=== PATIENT | male | born 1970 | race Caucasian/White ===

== ENCOUNTER 2024-07-30 12:22 | Emergency (ER) | payer OTHER, BC ==
[~2024-07-30] VITALS: Ht 182.9 cm; Wt 99.3 kg
[2024-07-30] MEDS ORDERED: TESTOSTERO200 MG/1 M IM (12:44)
[2024-07-30] MEDS ORDERED: AMLODIPINE BESYL5 MG PO (12:44)
[2024-07-30] MEDS ORDERED: TRULICITY3 MG/0.5 M SQ (12:44)
[2024-07-30] MEDS ORDERED: LORATADINE10 MG PO (12:44)
[2024-07-30] MEDS ORDERED: ROSUVASTATIN CA10 MG PO (12:44)
[2024-07-30 14:38] VITALS: BP 140/90
== END 2024-07-30 14:38 | disposition home or self-care (01) ==
LOC: ED 12:22
DX: S01.81XA Laceration without foreign body of other part of head, initial encounter (principal); I10 Essential (primary) hypertension; E11.9 Type 2 diabetes mellitus without complications; E78.00 Pure hypercholesterolemia, unspecified; W01.0XXA Fall on same level from slipping, tripping and stumbling without subsequent striking against object, initial encounter; Z79.899 Other long term (current) drug therapy
CPT/HCPCS: 70450; 99283-25

== ENCOUNTER 2024-09-25 10:40 | Day surgery (SDC) | payer BC, OTHER ==
[~2024-09-25] VITALS: Ht 180.3 cm; Wt 100.0 kg
[~2024-09-25 10:40] MED LIST: AMLODIPINE BESYL5 MG PO; CENTRUM MEN 501 EACH PO; IBLOOD GLUCOSE TEST STRIP 1 EA TEST VI PRN; LACTATED RINGER'S 1,000 ML IV SCH; LEVOTHYROXINE75 MCG PO; LIDOCAINE HCL 1% 5 ML SDV INJ ONE; LORATADINE10 MG PO; ROSUVASTATIN CA10 MG PO; TESTOSTERO200 MG/1 M IM; TRULICITY3 MG/0.5 M SQ
[2024-09-25 10:50] VITALS: BP 134/77
--- NOTE | 2024-09-25 12:15 | NUR ---
09/25/24 1215 Beth Bond 1158-PT ARRIVES TO PACU, VIA STRETCHER, PT RESTING ON LT SIDE, NO RESPONSE TO STIMULI, VSS ON RA, RR EVEN AND UNLABORED. 1210-PT AWAKENS TO TACTILE STIMULI, PT DENIES PAIN OR NAUSEA, VS REMAIN STABLE. PT ENCOURAGED TO PASS GAS. 1215-PT SITTING UP IN BED SIPPING ON WATER.
[2024-09-25 12:32] VITALS: BP 119/95
--- NOTE | 2024-09-29 13:15 | PATH ---
[facility] [address] [place], [place] [address] Signed SPECIMEN(S): A COLON POLYP #1 AT 20 CM SPECIMEN(S): B COLON POLYP #2 AT 20 CM SPECIMEN SOURCE: A. COLON POLYP #1 AT 20 CM B. COLON POLYP #2 AT 20 CM CLINICAL HISTORY: Screening FINAL PATHOLOGIC DIAGNOSIS: A. Colon polyp #1, at 20 cm - Hyperplastic polyp. B. Colon polyp #2, at 20 cm - Tubular adenoma. AMB MICROSCOPIC EXAMINATION: Histologic sections of all submitted blocks are examined by light microscopy. These findings, together with the gross examination, support the pathologic diagnosis. GROSS DESCRIPTION: A. The specimen, labeled and designated "Miladys, colon polyp #1 at 20 cm," is received in formalin and consists of two vaz soft tissue fragments, ranging from 0.2-0.3 cm. Entirely submitted in (A1). B. The specimen, labeled and designated "Miladys, colon polyp #2 at 20 cm," is received in formalin and consists of two vaz soft tissue fragments, ranging from 0.2-0.4 cm. Entirely submitted in (B1). VB (under the direct supervision of a pathologist) The Gross Description was prepared using a voice recognition system. The report was reviewed for accuracy; however, sound-alike word errors, addition and/or deletions may occur. If there is any question about this report, please contact Client Services. ADDITIONAL NOTES: Immunohistochemical and/or in situ hybridization studies if performed in this case included appropriate positive controls that reacted as expected. This test was developed and its performance characteristics determined by [facility]. It has not been cleared or approved by the U.S. Food and Drug Administration. The FDA has determined that PATIENT NAME: JOSE LAWSON PATHOLOGY DATE OF : 68 REPORT #: [id number] PHYSICIAN: [facility] PCP: NANY POSADA REPORT IS CONFIDENTIAL AND NOT TO BE RELEASED WITHOUT AUTHORIZATION [facility] [address] [facility] [place] [address] Signed such clearance or approval is not necessary. This test is used for clinical purposes. It should not be regarded as investigational or for research. [facility] is certified under the Clinical Laboratory Improvement Amendments of 1988 (CLIA) as qualified to perform high complexity clinical laboratory testing. PERFORMING LABORATORY: Technical component was performed by [facility], [address] [place] [id number] (CLIA# [id number]). [facility] [address] [id number] Diagnostician: Roxie Mejia MD Pathologist Electronically Signed 09/29/2024 Copies: ~ PATIENT NAME: JOSE LAWSON PATHOLOGY DATE OF : [birth year] REPORT #: [id number] PHYSICIAN: [facility] PATHOLOG[facility] PCP: NANY POSADA REPORT IS CONFIDENTIAL AND NOT TO BE RELEASED WITHOUT AUTHORIZATION
--- NOTE | 2024-10-01 15:15 | OR ---
[facility] [address] [place], [place] [address] Signed DATE OF OPERATION: 09/25/2024 SURGEON: Charo Moses DO PREOPERATIVE DIAGNOSIS: Colon cancer screening. POSTOPERATIVE DIAGNOSIS: Colon cancer screening, colon polyp at 20 cm x2. PROCEDURE PERFORMED: Colonoscopy with biopsy broad-based polyps at 20 cm x2. ANESTHESIA: IV sedation. ESTIMATED BLOOD LOSS: Minimal. DRAINS: None. COMPLICATION: None. DESCRIPTION OF PROCEDURE: The patient was brought to the GI lab, placed in supine position. After induction of IV sedation, the patient was placed in the left lateral position and padded to satisfaction of anesthesia. The Olympus video endoscope was introduced into the rectum. Due to the length of the rectosigmoid, sigmoid colon, descending colon, transverse colon, into the ascending colon and cecum. The colon was fully insufflated. General x-rays was carried out. The cecum and ascending colon were without lesions or ulcerations. No intrinsic or extrinsic mass was noted. Scope passed hepatic flexure of the transverse colon. No intrinsic or extrinsic masses, lesions, or ulcerations were noted. Scope passed the splenic flexure of the descending colon. No intrinsic or extrinsic masses, lesions or ulceration were noted. Scope was brought back into the sigmoid colon at approximately 20 cm. Two separate broad-based polyps were identified. They were photographed and were biopsied on multiple biopsy passes with the cold biopsy forceps. Satisfactory hemostasis was maintained. Specimens were passed off the field for pathologic review. No other abnormalities were appreciated. Rectosigmoid was unremarkable. Scope was Electronically Signed By: CHARO MOSES DO 10/01/24 1515 PATIENT NAME: JOSE LAWSON OPERATIVE REPORT DATE OF : 68 REPORT #: [id number] PHYSICIAN: CHARO MOSES DO PCP: NANY POSADA REPORT IS CONFIDENTIAL AND NOT TO BE RELEASED WITHOUT AUTHORIZATION [facility] [address] [facility] [place], [place] [address] Signed withdrawn. The patient tolerated the procedure well and went to recovery room in satisfactory condition. DO SANJAY Yepez/MENDEZ /[id number] Copies: ~ Electronically Signed By: CHARO MOSES DO 10/01/24 1515 PATIENT NAME: JOSE LAWSON OPERATIVE REPORT DATE OF : 68 REPORT #: [id number] PHYSICIAN: CHARO MOSES DO PCP: NANY POSADA REPORT IS CONFIDENTIAL AND NOT TO BE RELEASED WITHOUT AUTHORIZATION
== END 2024-09-25 12:40 | disposition home or self-care (01) ==
LOC: OPS 10:40 → DS 10:40 → OPS 12:10 → DS 12:10 → OPS 12:40 → DS 12:55 → OPS 12:55
PROVIDERS: ATTEND Surgery
PROC: 0DBN8ZX Excision of Sigmoid Colon, Via Natural or Artificial Opening Endoscopic, Diagnostic (ICD-10-PCS; principal; 2024-09-25 12:55)
DX: Z12.11 Encounter for screening for malignant neoplasm of colon (principal); K63.5 Polyp of colon; D12.5 Benign neoplasm of sigmoid colon; K59.03 Drug induced constipation; T50.905A Adverse effect of unspecified drugs, medicaments and biological substances, initial encounter; I10 Essential (primary) hypertension; E03.9 Hypothyroidism, unspecified; E11.9 Type 2 diabetes mellitus without complications; E29.1 Testicular hypofunction; Z79.85 Long-term (current) use of injectable non-insulin antidiabetic drugs; Z79.890 Hormone replacement therapy; Z79.899 Other long term (current) drug therapy
CPT/HCPCS: 00811; J2704; J7121